=== PATIENT | male | born 1960 | race Caucasian/White ===

== ENCOUNTER → 2023-10-24 19:09 | Outpatient (REF) | payer BC, SELFPAY | LOC: MRI 3T 19:09 | PROVIDERS: ATTENDING PHYSICIAN Surgery; FAMILY PHYSICIAN Nurse Practitioner | DX: R97.20 Elevated prostate specific antigen [PSA] (principal) | CPT/HCPCS: 72197; A9575 ==

== ENCOUNTER → 2025-04-03 16:48 | Outpatient (REF) | payer SELFPAY | LOC: RAD 16:48 | PROVIDERS: ATTENDING PHYSICIAN Nurse Practitioner | DX: E78.2 Mixed hyperlipidemia (principal) | CPT/HCPCS: 75571 ==

== ENCOUNTER → 2025-06-25 15:51 | Outpatient (REF) | payer BC, SELFPAY | LOC: HWRCS 15:51 | PROVIDERS: ATTENDING PHYSICIAN Internal Medicine Cardiovascular Disease; FAMILY PHYSICIAN Nurse Practitioner | DX: R06.02 Shortness of breath (principal) | CPT/HCPCS: 93306 ==

== ENCOUNTER → 2025-06-26 07:24 | Outpatient (REF) | payer BC, SELFPAY | LOC: HWRCS 07:24 | PROVIDERS: ATTENDING PHYSICIAN Internal Medicine Cardiovascular Disease; FAMILY PHYSICIAN Nurse Practitioner | DX: Z86.79 Personal history of other diseases of the circulatory system (principal); R06.02 Shortness of breath | CPT/HCPCS: 78452; 93017; A9500 ==

== ENCOUNTER → 2025-07-22 13:02 | Outpatient (REF) | payer BC, SELFPAY | LOC: EMG 13:02 | PROVIDERS: ATTENDING PHYSICIAN Orthopaedic Surgery; FAMILY PHYSICIAN Nurse Practitioner | DX: R20.0 Anesthesia of skin (principal) | CPT/HCPCS: 95886; 95911 ==